=== PATIENT | male | born 1970 | race Two or more races ===

== ENCOUNTER 2025-05-30 22:24 | Inpatient (IN) | payer MEDICAID, OTHER ==
[~2025-05-30] VITALS: Ht 160 cm; Wt 80.3 kg
[2025-05-30] MEDS: SODIUM CHLORIDE 0.9% 1,000 ML IV ONE (22:45)
[2025-05-30 23:14] LABS: Hematocrit 46.6 % (41.0-53.0); Hemoglobin 15.9 g/dL (13.5-17.5); Mean Corpuscular Hemoglobin 30.8 pg (28.0-32.0); Mean Corpuscular Volume 90.2 fL (80.0-100.0); Nucleated Red Blood Cells % 0.0 %
[2025-05-30 23:21] LABS: Alanine Aminotransferase 28 U/L (7-40); Alkaline Phosphatase 69 U/L (46-116); Anion Gap 12 (5-15); BUN/Creatinine Ratio 9.2 (10.0-20.0); Calcium 10.0 mg/dL (8.7-10.4); Carbon Dioxide 27 mmol/L (20-31); Chloride 102 mmol/L (98-107); Lipase 29 U/L (12-53); Potassium 3.7 mmol/L (3.5-5.1); Sodium 141 mmol/L (136-145); Total Protein 7.9 g/dL (5.7-8.2)
[2025-05-30 23:22] LABS: Albumin 5.1 g/dL (3.2-4.8); Bilirubin, Total 0.6 mg/dL (0.2-1.0); Blood Urea Nitrogen 8 mg/dL (9-23); Glucose 162 mg/dL (74-106)
--- NOTE | 2025-05-30 23:33 | DVH ---
Exam: CT CT AB PEL WO CON-NO ORAL OR IV History: abd pain n/v Comparison Study: None TECHNIQUE: Multidetector CT of the abdomen and pelvis was performed from lung bases to pubic symphysi s. Imaging was performed without IV contrast. Axial, coronal, and sagittal multiplanar reformats were obtained from the axial data set by the technologist. RADIATION DOSE: CTDI vol 10.14 mGy. DLP 678.83 mGy.cm Findings: Limited evaluation of the solid organs in the absence of IV contrast. Liver: Unremarkable. Spleen: Unremarkable. Pancreas: Unremarkable. Gallbladder: Unremarkable. Adrenals: Unremarkable Kidneys: Punctate nonobstructing left renal calculus. No hydronephrosis. Pelvic Viscera: Prostatomegaly. Vasculature: Unremarkable. Retroperitoneum: Unremarkable. Bowel: Postsurgical changes of the sigmoid colon. Colonic diverticulosis without CT evidence of dive rticulitis. The appendix is normal. There is dilated and fecalized small bowel with transition to de compressed loops seen within the lower midabdomen. Musculoskeletal: Grade 1 anterolisthesis of L5 on S1 associated with bilateral pars defects. Soft tissues: Unremarkable Lungs: The lung bases are clear. Impression: 1. Findings as above suggestive of small-bowel obstruction in the appropriate clinical setting. 2. Additional findings as detailed.
[2025-05-30] MEDS: ONDANSETRON HCL 4 MG/2 ML VIAL IV ONE (23:50)
--- NOTE | 2025-05-31 00:11 | ED.PDOC ---
GI ASSESSMENT HPI Comments HPI: 55-year-old male came to ER for abdominal pain. Patient has a history of diverticulitis, status post bowel resection 2012, 2015. At the about 7:00 p.m. last night, developed sudden onset left lower quadrant/left-sided abdominal pain, associated with bouts of nausea and vomiting. Denies any diarrhea Initial Vitals BP: 116/74 mm Hg HR: 83 RR: 22 O2: 99% Temp: 98.3 Past Medical History: Diabetes, dyslipidemia Past Surgical History: Bowel resection Social History: Denies ETOH, smoking, and drug use. Medications: Allergies: HPI: Poor Historian. REVIEW OF SYSTEMS: CONSTITUTIONAL: Denies acute: fever, diaphoresis, chills, HEAD: Denies acute: headache, photophobia Eyes: Denies acute: Double vision, vision loss, eye pain, eye discharge. EARS: Denies acute: tinnitus, hearing loss, ear discharge, ear pain, THROAT: Denies acute: sore throat, swelling, difficulty swallowing , pain with swallowing, change in voice. NECK: Denies acute: neck pain, neck swelling, stiff neck. HEART: Denies acute : chest pain, palpitations, LUNGS: Denies acute: SOB, wheezing, cough, hemoptysis ABDOMEN: Denies acute: diarrhea, melena , hematemesis, hematochezia SKIN: Denies acute: rash, redness, lesions, itchiness. EXTREMITIES: Denies acute: calf pain, numbness, tingling, weakness, denies pain in extremity. Denies acute: Low back pain. Neuro: Denies acute: focal neurological deficit, motor or sensory focal neurological deficit, tremors, seizure like activity, confusion, dizziness, change in mental status, loss of bowel or bladder function, cauda equina like symptoms. : Denies acute: dysuria, hematuria, flank pain, increase in urinary frequency. PSYCH: Denies acute: hallucination, suicidal ideation, homicidal ideation. PHYSICAL EXAM: General: ----moderate to severe----acute distress, awake and alert. Head: normocephalic, atraumatic. Neck: supple, trachea is midline, no swelling. Throat: Normal phonation. Eyes:, no erythema, no purulent discharge, no proptosis, no icterus. Heart: regular rate, regular rhythm, no significant murmur appreciated. Lungs: no apparent respiratory distress, Able to speak in full sentences. No wheezing, no rhonchi, no crackles. No stridors Clear to auscultation bilaterally. Abdomen: Left-sided abdominal tender to palpation, non distended, soft, no guarding, no rebound, + bowel sounds. Neuro: Awake, Alert, oriented to name, self, situation, follows commands GCS=15. Speech is normal. Skin: no petechia, no purpura, no cyanosis, non-pale, not jaundice. Lower extremities: --no - Pitting edema no deformity, no focal swelling, no calf TTP. Makes eye contact. moves all four extremities. Face: no apparent facial droop. Ambulating in the ED independently. ED COURSE: DISCLAIMER: This medical document was created using an electronic medical record system with voice recognition software and computerized dictation system. Although this document has been carefully reviewed, there might still be some phonetic and typographical errors. Occasional wrong-word or "sound-alike" substitutions may have occurred due to the inherent limitations of voice recognition software. These areas are purely typographical due to imperfections of the software [employer] and do not reflect any compromise in the patient's medical care. Please read the chart carefully and recognize, using context, where these substitutions have occurred. Chief Complaint: Abdominal Pain Time Seen by MD: 00:11 Reviewed Notes: Allergies Allergies: Coded Allergies: NO KNOWN ALLERGIES (Unverified , 05/30/25) Home Meds Reported Medications Atorvastatin Calcium (ATORVASTATIN CALCIUM) 10 Mg Tab, 1 TAB PO DAILY 06/01/25 Metformin Hydrochloride (Metformin Hcl) 500 Mg Tab, 1 TAB PO BID 06/01/25 Information Source: Patient Mode of Arrival: Ambulatory Past Medical History PAST MEDICAL HISTORY: DM, High Lipids Past Medical History (Other): Diverticulitis Surgical History (Other): Bowel resection 2012, 2016 Family History Family History: Reviewed,noncontributory to illness Social History Smoker: Non-Smoker Alcohol: Denies ETOH Use Drugs: Denies Drug Use Lives In: Home Was a procedure done? Was a procedure done?: No GI differential Dx Differential Diagnosis: Other (DDX include but not limited to diverticulitis, colitis, gastroenteritis, acute abdomen, SBO, enteritis, constipation, volvulus, appendicitis, Gallbladder disease, choledocolithiasis, ascending cholangitis, pancreatitis, intraAbdominal mass/neoplasm, hepatitis, UTI, pylonephritis, kidney stone, aneurysm, dissection, Inflammatory bowel disease, gastroparesis, ischemic bowel.) X-Ray, Labs, Meds, VS Vital Signs Date Time Temp Pulse Resp B/P (MAP) Pulse Ox O2 Delivery O2 Flow Rate FiO2 05/31/25 04:48 86 19 131/77 (95) 98 05/31/25 04:00 83 05/31/25 02:00 87 22 145/85 (105) 97 05/31/25 01:42 135/89 05/31/25 00:25 97.2 72 30 150/92 (111) 100 97.2 05/31/25 00:15 97.9 75 20 130/68 (88) 99 97.9 05/31/25 00:15 75 20 99 Room Air 05/30/25 22:24 98.3 83 22 116/74 99 98.3 Lab Test 05/31/25 03:20 05/31/25 00:45 05/30/25 23:43 05/30/25 22:52 Range/Units White Blood Count 14.2 H 12.0 H 4.4-10.8 10^3/uL Red Blood Count 4.74 5.17 4.5-5.90 10^6/uL Hemoglobin 14.7 15.9 13.5-17.5 g/dL Hematocrit 43.1 46.6 41.0-53.0 % Mean Corpuscular Volume 91.0 90.2 80.0-100.0 fL Mean Corpuscular Hemoglobin 31.1 30.8 28.0-32.0 pg Mean Corpuscular Hemoglobin Concent 34.2 34.1 32.0-36.0 g/dL Red Cell Distribution Width 13.8 13.6 11.8-14.3 % Platelet Count 166 193 140-450 10^3/uL Mean Platelet Volume 9.5 9.1 6.9-10.8 fL Neutrophils (%) (Auto) 87.5 H 62.0 37.0-80.0 % Lymphocytes (%) (Auto) 7.6 L 31.0 10.0-50.0 % Monocytes (%) (Auto) 4.7 5.4 0.0-12.0 % Eosinophils (%) (Auto) 0.0 1.3 0.0-7.0 % Basophils (%) (Auto) 0.2 0.3 0.0-2.0 % Neutrophils # (Auto) 12.4 H 7.5 1.6-8.6 10 ^3/uL Lymphocytes # (Auto) 1.1 3.7 0.4-5.4 10 ^3/uL Monocytes # (Auto) 0.7 0.6 0-1.3 10 ^3/uL Eosinophils # (Auto) 0 0.2 0-0.8 10 ^3/uL Basophils # (Auto) 0 0 0-0.2 10 ^3/uL Nucleated Red Blood Cells 0.1 0.0 % Sodium Level 144 141 136-145 mmol/L Potassium Level 4.1 3.7 3.5-5.1 mmol/L Chloride Level 108 H 102 98-107 mmol/L Carbon Dioxide Level 24 27 20-31 mmol/L Anion Gap 12 12 5-15 Blood Urea Nitrogen 10 8 L 9-23 mg/dL Creatinine 0.70 0.87 0.700-1.30 mg/dL Glomerular Filtration Rate Calc 110 103 >90 mL/min BUN/Creatinine Ratio 14.3 9.2 L 10.0-20.0 Serum Glucose 154 H 162 H 74-106 mg/dL Lactic Acid Level 3.1 *H 3.9 *H 3.7 *H 0.4-2.0 mmol/L Calcium Level 8.1 L 10.0 8.7-10.4 mg/dL Total Bilirubin 0.6 0.6 0.2-1.0 mg/dL Aspartate Amino Transferase (AST) 29 23 13-40 U/L Alanine Aminotransferase (ALT) 24 28 7-40 U/L Alkaline Phosphatase 53 69 46-116 U/L Total Protein 6.6 7.9 5.7-8.2 g/dL Albumin 4.2 5.1 H 3.2-4.8 g/dL Troponin I High Sensitivity < 3 L < 3 L < 3 L </=54 ng/L Lipase 29 12-53 U/L [facility] [id number] [place] [id number] Ph: [phone] DIAGNOSTIC IMAGING Diagnostic Imaging Report : [id number] Signed PATIENT: MARTA SMITH ACCT: [id number] UNIT: [id number] : 1970 LOC: ER ROOM / BED: / AGE / SEX: 55 / M ADM STATUS: REG ER SERVICE 34 ORDERING PHYSICIAN: ALKA FRIEDMAN DO PROCEDURE(s): ABPL - CT AB PEL WO CON-NO ORAL OR IV REASON: abd pain n/v ORDER NUMBER(s): [id number], ACCESSION NUMBER(s): [id number] Exam: CT CT AB PEL WO CON-NO ORAL OR IV History: abd pain n/v Comparison Study: None TECHNIQUE: Multidetector CT of the abdomen and pelvis was performed from lung bases to pubic symphysis. Imaging was performed without IV contrast. Axial, coronal, and sagittal multiplanar reformats were obtained from the axial data set by the technologist. RADIATION DOSE: CTDI vol 10.14 mGy. DLP 678.83 mGy.cm Findings: Limited evaluation of the solid organs in the absence of IV contrast. Liver: Unremarkable. Spleen: Unremarkable. Pancreas: Unremarkable. Gallbladder: Unremarkable. Adrenals: Unremarkable Kidneys: Punctate nonobstructing left renal calculus. No hydronephrosis. Pelvic Viscera: Prostatomegaly. Vasculature: Unremarkable. Retroperitoneum: Unremarkable. Bowel: Postsurgical changes of the sigmoid colon. Colonic diverticulosis without CT evidence of diverticulitis. The appendix is normal. There is dilated and fecalized small bowel with transition to decompressed loops seen within the lower midabdomen. Musculoskeletal: Grade 1 anterolisthesis of L5 on S1 associated with bilateral pars defects. Soft tissues: Unremarkable Lungs: The lung bases are clear. Impression: 1. Findings as above suggestive of small-bowel obstruction in the appropriate clinical setting. 2. Additional findings as detailed. ATED BY: GERRY DIMAS MD DICTATED DATE/TIME: 05/30/252329 SIGNED BY: GERRY DIMAS MD SIGNED DATE/TIME: 05/30/252329 CC: Time of 1ST Reevaluation: 00:06 Reevaluation 1ST: Unchanged Patient Education/Counseling: Diagnosis, Treatment Family Education/Counseling: No Family Present Comments MDM: patient presented with the above HPI.---abdominal pain---workup was initiated. patient was found with the above mentioned diagnosis. the following medications were ordered: please refer to order lists of meds and tests obtained by myself Dr. Friedman. Patient ED course and VS have been stabilized. Patient has been reassessed in the ED and remained in a stable condition. Pertinent incidental findings were discussed with the patient and/or family. Patient/family voices understanding and is agreeable with plan. Patient has been observed in the ED adequate length of time to insure improvement/stability. Escalation of care considered: Consideration of escalation to observation or admission Patient was given fluids, Zosyn,, fentanyl, OG tube was placed, Zofran, general surgery was consulted. Patient was ADMITTED to the medicine team for further evaluation and treatment of their presentation. All the reports of any imaging studies that were ordered by myself were reviewed by myself. SEPSIS Sepsis Screen Date sepsis recognized/suspect: May 30, 2025 Time Sepsis recognized/suspect: 2223 Recent Procedure: No On Antibiotic Therapy: No Respiratory Rate >20: No Heart Rate >90: No Temp<36 C (96.8 F) or >38.3 C: No SBP <90 or MAP <65 mmHG: No New Acute Mental Status Change: No Is the patient on CPAP, BIPAP,: No Physician Orders Department [employer] (05/30/25 ) Electrocardigram (05/30/25 22:35) Ct Ab Pel Wo Con-No Oral Or Iv (05/30/25 22:35) * Surgical Consult (05/31/25 ) Chest Xray 1 View (05/31/25 00:24) Ngt/Ogt (05/31/25 ) Code Status (05/31/25 01:24) Oxygen Per Hour (05/31/25 01:24) Vital Signs Date Time Temp Pulse Resp B/P (MAP) Pulse Ox O2 Delivery O2 Flow Rate FiO2 05/31/25 04:48 86 19 131/77 (95) 98 05/31/25 04:00 83 05/31/25 02:00 87 22 145/85 (105) 97 05/31/25 01:42 135/89 05/31/25 00:25 97.2 72 30 150/92 (111) 100 97.2 05/31/25 00:15 97.9 75 20 130/68 (88) 99 97.9 05/31/25 00:15 75 20 99 Room Air 05/30/25 22:24 98.3 83 22 116/74 99 98.3 Laboratory Tests Test 05/30/25 22:52 05/31/25 00:45 05/31/25 03:20 Lactic Acid Level 3.7 mmol/L (0.4-2.0) *H 3.9 mmol/L (0.4-2.0) *H 3.1 mmol/L (0.4-2.0) *H White Blood Count 12.0 10^3/uL (4.4-10.8) H 14.2 10^3/uL (4.4-10.8) H Departure 1 Departure Time of Disposition: 00:05 Impression: Primary Impression: Bowel obstruction Disposition: ADMITTED INPATIENT Admit to: [facility] Condition: Guarded Discharged With: Self Critical Care Note Critical Care Time?: Yes (35 min-critical care time only) I personally scribed for ALKA FRIEDMAN DO ([email or web address]) on 05/31/25 at 00:11. Electronically submitted by Damien Cueto ([employer]). I personally scribed for ALKA FRIEDMAN DO ([email or web address]) on 05/31/25 at 00:16. Electronically submitted by Damien Cueto ([employer]). ALKA FRIEDMAN DO May 31, 2025 00:11
[2025-05-31 00:13] LABS: Lactic Acid w/Reflex 3.7 mmol/L (0.4-2.0)
[2025-05-31] MEDS ORDERED: DEXTROSE (50%) 50ML SYRG IV PRN (01:30)
[2025-05-31] MEDS: SODIUM CHLORIDE 0.9% 1,000 ML IV ONE ×2 (01:37→04:33)
[2025-05-31] MEDS: fentaNYL CITRATE 100 MCG/2 ML VL IV ONE (01:42)
[2025-05-31] MEDS: PIPERACILLIN-TAZOB 3.375GM 100 ML IV ONE (01:50)
[2025-05-31] MEDS: SODIUM CHLORIDE 0.9% 1,000 ML IV SCH ×2 (03:00→15:13)
--- NOTE | 2025-05-31 03:14 | DVH ---
CHEST RADIOGRAPH Indication: NGT PLACEMENT Technique: Single frontal view of the chest was obtained Comparison: None FINDINGS: Lines and Tubes: Enteric tube likely in appropriate position. Lungs: No focal consolidation. Mild pulmonary vascular congestion and interstitial edema. Pleura: No effusion. No pneumothorax. Cardiomediastinal contours: Mild cardiomegaly. Bones: No acute osseous abnormality. IMPRESSION: 1. Enteric tube likely in appropriate position. 2. No focal consolidation. Mild pulmonary vascular congestion and interstitial edema. Mild cardiomega ly.
[2025-05-31 03:50] LABS: Hematocrit 43.1 % (41.0-53.0); Hemoglobin 14.7 g/dL (13.5-17.5); Mean Corpuscular Hemoglobin 31.1 pg (28.0-32.0); Mean Corpuscular Volume 91.0 fL (80.0-100.0); Nucleated Red Blood Cells % 0.1 %
[2025-05-31 03:58] LABS: Alanine Aminotransferase 24 U/L (7-40); Albumin 4.2 g/dL (3.2-4.8); Alkaline Phosphatase 53 U/L (46-116); Anion Gap 12 (5-15); BUN/Creatinine Ratio 14.3 (10.0-20.0); Bilirubin, Total 0.6 mg/dL (0.2-1.0); Blood Urea Nitrogen 10 mg/dL (9-23); Carbon Dioxide 24 mmol/L (20-31); Potassium 4.1 mmol/L (3.5-5.1); Sodium 144 mmol/L (136-145); Total Protein 6.6 g/dL (5.7-8.2)
[2025-05-31 04:11] LABS: Lactic Acid w/Reflex 3.1 mmol/L (0.4-2.0)
[2025-05-31 04:12] LABS: Calcium 8.1 mg/dL (8.7-10.4); Chloride 108 mmol/L (98-107); Glucose 154 mg/dL (74-106)
[2025-05-31] MEDS ORDERED: NITROGLYCERIN 0.4 MG SL TAB SL PRN (05:15)
[2025-05-31] MEDS ORDERED: MORPHINE SULFATE INJ 2 MG/ml SYRG IV PRN (05:15)
--- NOTE | 2025-05-31 05:24 | DVHHP2 ---
History of Present Illness Reason for Visit: Small-bowel obstruction History of Present Illness The patient is a 55-year-old male with past medical history of diverticulitis status post bowel resection, diabetes mellitus and hyperlipidemia who presented to [facility] ED with complaint of abdominal pain. Patient reports he has been experiencing sudden onset of left lower quadrant abdominal pain, associated with bouts of nausea, vomiting, getting worse that prompted this visit. Patient was seen and evaluated in the ED, laboratory data shows WBC 12.0, platelets 193, sodium 141, potassium 3.7, BUN 8, creatinine 0.87, GFR 103, glucose 162, albumin 5.1, lipase 29, blood pressure 150/92, heart rate 72, temperature 97.2 F, O2 saturation 99% on room air. Abdomen/pelvis CT revealing small bowel obstruction. Please see medication orders section in the computer. On my assessment, patient denied chest pain, no headache, no dizziness, no shortness of breath, no abdominal pain, nausea or vomiting at this moment, no fever, no chills. Patient was admitted for further evaluation and medical management. Past Medical History Diabetes mellitus, Hyperlipidemia Past Surgical History Bowel resection Family History Reviewed, noncontributory to the management of this case. Past Social History The patient lives at home, denies smoking, alcohol or illicit drugs abuse. Review of Systems Constitutional: No: Fever, Chills, Sweats, Weakness, Malaise, Other Eyes: No: Pain, Vision change, Conjunctivae inflammation, Eyelid inflammation, Other, Redness ENT: No: Ear pain, Ear discharge, Nose pain, Nose discharge, Nose congestion, Mouth pain, Mouth swelling, Throat pain, Throat swelling, Other Respiratory: No: Cough, Dry, Shortness of breath, SOB with excertion, Wheezing, Hemoptysis, Pleuritic Pain, Sputum, Wheezing, Other Cardiovascular: No: Chest Pain, Palpitations, Orthopnea, Paroxysmal Noc. Dyspnea, Edema, Lt Headedness, Other Gastrointestinal: Nausea, Vomiting, Abdominal Pain; No: Diarrhea, Constipation, Melena, Hematochezia, Other Genitourinary: No Dysuria, No Frequency, No Incontinence, No Hematuria, No Retention, No Other Musculoskeletal: No: other, neck pain, shoulder pain, arm pain, back pain, hand pain, leg pain, foot pain Skin: No: Rash, Lesions, Jaundice, Bruising, Other Neurological: No: Weakness, Numbness, Incoordination, Change in speech, Confusion, Seizures, Other Allergies: Coded Allergies: NO KNOWN ALLERGIES (Unverified , 05/30/25) Medications Current Medications Medications Dose Ordered Sig/Jony Route Start Time Stop Time Status Last Admin Dose Admin Ceftriaxone Sodium 50 ml @ 100 mls/hr DAILY@09 IV 05/31/25 09:00 Famotidine 20 mg DAILY IV 05/31/25 10:00 Diagnostic Test (Pha) 1 strip Q6HR 05/31/25 06:00 Insulin Human Regular Q6HR SC 05/31/25 06:00 Dextrose 50 ml UD PRN IV 05/31/25 01:30 Sodium Chloride 1,000 ml @ 60 mls/hr [id number] IV 05/31/25 01:30 05/31/25 03:00 60 MLS/HR Ondansetron HCl 4 mg Q4HP PRN IV 05/31/25 01:30 Morphine Sulfate 2 mg Q4HPRN PRN IV 05/31/25 01:30 Exam Vital Signs Vital Signs Date Time Temp Pulse Resp B/P (MAP) Pulse Ox O2 Delivery O2 Flow Rate FiO2 05/31/25 04:48 86 19 131/77 (95) 98 05/31/25 00:25 97.2 97.2 05/31/25 00:15 Room Air General Appearance: Alert, Oriented X3, Cooperative, No acute distress HEENT: Atraumatic, PERRLA, EOMI, Mucous membr. moist/pink Respiratory: Clear to auscultation, Normal air movement Cardiovascular: Regular rate, Normal S1, Normal S2, No murmurs Abdominal: Normal bowel sounds, Soft, No hepatospenomegaly, No masses, Other (Reports tenderness) Extremities: No clubbing, No cyanosis, No edema, Normal pulses, No ten derness/swelling Skin: No rashes, No breakdown, No significant lesion Neuro: Normal gait, Normal speech, Strength at 5/5 X4 ext, Normal tone, Sensation intact, Cranial nerves 3-12 NL, Reflexes 2+ Psych/Mental Status: Mental status NL, Mood NL Labs/Xrays Labs Test 05/31/25 03:20 05/31/25 00:45 05/30/25 22:52 Range/Units White Blood Count 14.2 H 4.4-10.8 10^3/uL Red Blood Count 4.74 4.5-5.90 10^6/uL Hemoglobin 14.7 13.5-17.5 g/dL Hematocrit 43.1 41.0-53.0 % Mean Corpuscular Volume 91.0 80.0-100.0 fL Mean Corpuscular Hemoglobin 31.1 28.0-32.0 pg Mean Corpuscular Hemoglobin Concent 34.2 32.0-36.0 g/dL Red Cell Distribution Width 13.8 11.8-14.3 % Platelet Count 166 140-450 10^3/uL Mean Platelet Volume 9.5 6.9-10.8 fL Neutrophils (%) (Auto) 87.5 H 37.0-80.0 % Lymphocytes (%) (Auto) 7.6 L 10.0-50.0 % Monocytes (%) (Auto) 4.7 0.0-12.0 % Eosinophils (%) (Auto) 0.0 0.0-7.0 % Basophils (%) (Auto) 0.2 0.0-2.0 % Neutrophils # (Auto) 12.4 H 1.6-8.6 10 ^3/uL Lymphocytes # (Auto) 1.1 0.4-5.4 10 ^3/uL Monocytes # (Auto) 0.7 0-1.3 10 ^3/uL Eosinophils # (Auto) 0 0-0.8 10 ^3/uL Basophils # (Auto) 0 0-0.2 10 ^3/uL Nucleated Red Blood Cells 0.1 % Sodium Level 144 136-145 mmol/L Potassium Level 4.1 3.5-5.1 mmol/L Chloride Level 108 H 98-107 mmol/L Carbon Dioxide Level 24 20-31 mmol/L Anion Gap 12 5-15 Blood Urea Nitrogen 10 9-23 mg/dL Creatinine 0.70 0.700-1.30 mg/dL Glomerular Filtration Rate Calc 110 >90 mL/min BUN/Creatinine Ratio 14.3 10.0-20.0 Serum Glucose 154 H 74-106 mg/dL Lactic Acid Level 3.1 *H 0.4-2.0 mmol/L Calcium Level 8.1 L 8.7-10.4 mg/dL Total Bilirubin 0.6 0.2-1.0 mg/dL Aspartate Amino Transferase (AST) 29 13-40 U/L Alanine Aminotransferase (ALT) 24 7-40 U/L Alkaline Phosphatase 53 46-116 U/L Total Protein 6.6 5.7-8.2 g/dL Albumin 4.2 3.2-4.8 g/dL Troponin I High Sensitivity < 3 L </=54 ng/L Lipase 29 12-53 U/L PATIENT: MARTA SMITH ACCT: [id number] UNIT: [id number] : 1970 LOC: ER ROOM / BED: / AGE / SEX: 55 / M ADM STATUS: REG ER SERVICE ORDERING PHYSICIAN: ALKA FRIEDMAN DO PROCEDURE(s): ABPL - CT AB PEL WO CON-NO ORAL OR IV REASON: abd pain n/v ORDER NUMBER(s): [id number], ACCESSION NUMBER(s): [id number] Exam: CT CT AB PEL WO CON-NO ORAL OR IV History: abd pain n/v Comparison Study: None TECHNIQUE: Multidetector CT of the abdomen and pelvis was performed from lung bases to pubic symphysis. Imaging was performed without IV contrast. Axial, coronal, and sagittal multiplanar reformats were obtained from the axial data set by the technologist. RADIATION DOSE: CTDI vol 10.14 mGy. DLP 678.83 mGy.cm Findings: Limited evaluation of the solid organs in the absence of IV contrast. Liver: Unremarkable. Spleen: Unremarkable. Pancreas: Unremarkable. Gallbladder: Unremarkable. Adrenals: Unremarkable Kidneys: Punctate nonobstructing left renal calculus. No hydronephrosis. Pelvic Viscera: Prostatomegaly. Vasculature: Unremarkable. Retroperitoneum: Unremarkable. Bowel: Postsurgical changes of the sigmoid colon. Colonic diverticulosis without CT evidence of diverticulitis. The appendix is normal. There is dilated and fecalized small bowel with transition to decompressed loops seen within the lower midabdomen. Musculoskeletal: Grade 1 anterolisthesis of L5 on S1 associated with bilateral pars defects. Soft tissues: Unremarkable Lungs: The lung bases are clear. Impression: 1. Findings as above suggestive of small-bowel obstruction in the appropriate clinical setting. 2. Additional findings as detailed. ORDERING PHYSICIAN: ALKA FRIEDMAN DO PROCEDURE(s): CXR1 - CHEST XRAY 1 VIEW REASON: NGT PLACEMENT ORDER NUMBER(s): [id number], ACCESSION NUMBER(s): [id number] CHEST RADIOGRAPH Indication: NGT PLACEMENT Technique: Single frontal view of the chest was obtained Comparison: None FINDINGS: Lines and Tubes: Enteric tube likely in appropriate position. Lungs: No focal consolidation. Mild pulmonary vascular congestion and in terstitial edema. Pleura: No effusion. No pneumothorax. Cardiomediastinal contours: Mild cardiomegaly. Bones: No acute osseous abnormality. IMPRESSION: 1. Enteric tube likely in appropriate position. 2. No focal consolidation. Mild pulmonary vascular congestion and interstitial edema. Mild cardiomegaly. SEPSIS Sepsis Screen Date sepsis recognized/suspect: May 31, 2025 Time Sepsis recognized/suspect: 14 Recent Procedure: No On Antibiotic Therapy: No Respiratory Rate >20: No Heart Rate >90: No Temp<36 C (96.8 F) or >38.3 C: No SBP <90 or MAP <65 mmHG: No New Acute Mental Status Change: No Is the patient on CPAP, BIPAP,: No Physician Orders Director Sales Training (05/30/25 ) Urinalysis (05/30/25 22:35) Electrocardigram (05/30/25 22:35) Ct Ab Pel Wo Con-No Oral Or Iv (05/30/25 22:35) Ng/Orogastric Tube To Lis (05/31/25 00:04) * Surgical Consult (05/31/25 ) Chest Xray 1 View (05/31/25 00:24) Ceftriaxone 1gm/50ml D5w (Rocephin) (05/31/25 09:00) Ngt/Ogt (05/31/25 ) Famotidine Injection (Pepcid Injection) (05/31/25 10:00) Glucose Blood (Accu-Chek Comfort Curve T (05/31/25 06:00) Insulin R (Human) (Insulin R) (05/31/25 06:00) Dextrose 50% Syringe (05/31/25 01:30) Allergies (05/31/25 01:24) Code Status (05/31/25 01:24) Sodium Chloride 0.9% (05/31/25 01:30) Oxygen Per Hour (05/31/25 01:24) Ondansetron Hcl (Zofran) (05/31/25 01:30) Complete Blood Count (06/01/25 04:00) Comprehensive Metabolic Panel (06/01/25 04:00) Npo (Nothing By Mouth) Diet (05/31/25 Breakfast) Condition: Serious (05/31/25 01:24) Bedrest With Bathroom Privileg (05/31/25 01:24) Morphine Sulfate Injection (05/31/25 01:30) Sequential Compression Device (05/31/25 ) Sodium Chloride 0.9% (05/31/25 04:15) Vital Signs Date Time Temp Pulse Resp B/P (MAP) Pulse Ox O2 Delivery O2 Flow Rate FiO2 05/31/25 04:48 86 19 131/77 (95) 98 05/31/25 04:00 83 05/31/25 02:00 87 22 145/85 (105) 97 05/31/25 01:42 135/89 05/31/25 00:25 97.2 72 30 150/92 (111) 100 97.2 05/31/25 00:15 97.9 75 20 130/68 (88) 99 97.9 05/31/25 00:15 75 20 99 Room Air 05/30/25 22:24 98.3 83 22 116/74 99 98.3 Laboratory Tests Test 05/30/25 22:52 05/31/25 00:45 05/31/25 03:20 Lactic Acid Level 3.7 mmol/L (0.4-2.0) *H 3.9 mmol/L (0.4-2.0) *H 3.1 mmol/L (0.4-2.0) *H White Blood Count 12.0 10^3/uL (4.4-10.8) H 14.2 10^3/uL (4.4-10.8) H Medications Medications Dose Ordered Sig/Jony Route Start Time Stop Time Status Last Admin Dose Admin Fentanyl Citrate 100 mcg ONCE ONCE IV 05/31/25 00:15 05/31/25 00:16 DC 05/31/25 01:42 100 MCG Ondansetron HCl 8 mg ONCE ONCE IV 05/30/25 22:45 05/30/25 22:46 DC 05/30/25 23:50 8 MG Piperacillin Sod/ Tazobactam Sod 100 ml @ 100 mls/hr ONCE ONCE IV 05/31/25 00:15 05/31/25 01:14 DC 05/31/25 01:50 100 MLS/HR Sodium Chloride 1,000 ml @ 60 mls/hr [id number] IV 05/31/25 01:30 05/31/25 03:00 60 MLS/HR Sodium Chloride 1,000 ml @ 1,000 mls/hr Q1H ONCE IV 05/30/25 22:45 05/30/25 23:44 DC 05/30/25 22:45 1,000 MLS/HR Sodium Chloride 1,000 ml @ 1,000 mls/hr Q1H ONCE IV 05/31/25 00:15 05/31/25 01:14 DC 05/31/25 01:37 1,000 MLS/HR Sodium Chloride 1,000 ml @ 1,000 mls/hr Q1H ONCE IV 05/31/25 04:15 05/31/25 05:14 05/31/25 04:33 1,000 MLS/HR Assessment/Plan Assessment/Plan Small-bowel obstruction Leukocytosis, unspecified Intractable nausea and vomiting Plan 1. Admit to telemetry unit 2. Breathing treatment 3. Pain control management 4. IV antibiotic management 5. Management of fluids and electrolytes 6. Consultation for surgery 7. Diagnostic test abdomen/pelvis CT 8. DVT prophylaxis-on SCDs 9. Repeat labs CBC, CMP in a.m. 10. Home medication reviewed and reconciled 11. Continue with current medical management 12. Treatment plan discussed with patient and RN. Patient verbalized understanding. Plan discussed with: Patient, Other (RN) My Orders Orders - JON FIGUEROA DNP Procedure Category Date Status Time Ceftriaxone 1gm/50ml PHA 05/31/25 In Process D5w (Rocephin) 09:00 Ngt/Ogt ED NURSING 05/31/25 Transmitted Famotidine Injection PHA 05/31/25 In Process (Pepcid Injection) 10:00 Glucose Blood PHA 05/31/25 In Process (Accu-Chek Comfort 06:00 Insulin R (Human) PHA 05/31/25 In Process (Insulin R) 06:00 Dextrose 50% Syringe PHA 05/31/25 In Process 01:30 Allergies ALYSON 05/31/25 In Process 01:24 Code Status CODE 05/31/25 Transmitted 01:24 Sodium Chloride 0.9% PHA 05/31/25 In Process 01:30 Oxygen Per Hour RT 05/31/25 Transmitted 01:24 Ondansetron Hcl PHA 05/31/25 In Process (Zofran) 01:30 Complete Blood Count LAB 06/01/25 Verified 04:00 Comprehensive LAB 06/01/25 Verified Metabolic Panel 04:00 Npo (Nothing By DIET 05/31/25 Transmitted Mouth) Diet Breakfast Condition: Serious ALYSON 05/31/25 In Process 01:24 Bedrest With Bathroom ALYSON 05/31/25 In Process Privileg 01:24 Morphine Sulfate PHA 05/31/25 In Process Injection 01:30 Sequential ALYSON 05/31/25 In Process Compression Device Problem List: (1) Small bowel obstruction (2) Leukocytosis, unspecified (3) Intractable nausea and vomiting Date of Service: May 31, 2025 Billing Provider: JON FIGUEROA DNP Common Visit Codes: [id number] INP/OBS CARE (HIGH) JON FIGUEROA DNP May 31, 2025 05:24
[2025-05-31] MEDS: ACCU-CHEK COMFORT CURVE STRIP VI SCH (06:00)
[2025-05-31] MEDS: InsuLIN REG 1unit/0.01ml Soln (100units/ml) SC SCH (06:25)
[2025-05-31 08:46] VITALS: PULSE 90; RESP 13; O2SAT 98
--- NOTE | 2025-05-31 09:29 | DVHINCON2 ---
Date of service: May 31, 2025 Allergies: Coded Allergies: NO KNOWN ALLERGIES (Unverified , 05/30/25) Current Medications Current Medications Medications (Trade) Dose Ordered Sig/Jony Route PRN Reason Start Time Stop Time Status Last Admin Ceftriaxone Sodium 50 ml @ 100 mls/hr DAILY@09 IV 05/31/25 09:00 05/31/25 09:01 Famotidine (Pepcid Injection) 20 mg DAILY IV 05/31/25 10:00 Diagnostic Test (Pha) (Accu-Chek Comfort Curve T) 1 strip Q6HR 05/31/25 06:00 05/31/25 06:00 Insulin Human Regular (InsuLIN R) Q6HR SC 05/31/25 06:00 05/31/25 06:25 Dextrose 50 ml UD PRN IV Blood Sugar LESS THAN 60 05/31/25 01:30 Sodium Chloride 1,000 ml @ 60 mls/hr [id number] IV 05/31/25 01:30 05/31/25 03:00 Ondansetron HCl (Zofran) 4 mg Q4HP PRN IV NAUSEA / VOMITING 05/31/25 01:30 Morphine Sulfate 2 mg Q4HPRN PRN IV SEVERE PAIN (7-10 PAIN SCALE) 05/31/25 01:30 Nitroglycerin (Ntrostat Sublingual) 0.4 mg Q5MINP PRN SL FOR CHEST PAIN 05/31/25 05:15 Morphine Sulfate 2 mg Q30M PRN IV FOR CHEST PAIN 05/31/25 05:15 Vital Signs Vital Signs Date Time Temp Pulse Resp B/P (MAP) Pulse Ox O2 Delivery O2 Flow Rate FiO2 05/31/25 08:46 97.9 90 13 129/77 (94) 98 97.9 05/31/25 08:46 Nasal Cannula* 2 28 Labs/Diagnostic Data Labs Test 05/31/25 05:24 05/31/25 03:20 05/31/25 00:45 05/30/25 22:52 Range/Units Lactic Acid Level 3.2 *H 0.4-2.0 mmol/L White Blood Count 14.2 H 4.4-10.8 10^3/uL Red Blood Count 4.74 4.5-5.90 10^6/uL Hemoglobin 14.7 13.5-17.5 g/dL Hematocrit 43.1 41.0-53.0 % Mean Corpuscular Volume 91.0 80.0-100.0 fL Mean Corpuscular Hemoglobin 31.1 28.0-32.0 pg Mean Corpuscular Hemoglobin Concent 34.2 32.0-36.0 g/dL Red Cell Distribution Width 13.8 11.8-14.3 % Platelet Count 166 140-450 10^3/uL Mean Platelet Volume 9.5 6.9-10.8 fL Neutrophils (%) (Auto) 87.5 H 37.0-80.0 % Lymphocytes (%) (Auto) 7.6 L 10.0-50.0 % Monocytes (%) (Auto) 4.7 0.0-12.0 % Eosinophils (%) (Auto) 0.0 0.0-7.0 % Basophils (%) (Auto) 0.2 0.0-2.0 % Neutrophils # (Auto) 12.4 H 1.6-8.6 10 ^3/uL Lymphocytes # (Auto) 1.1 0.4-5.4 10 ^3/uL Monocytes # (Auto) 0.7 0-1.3 10 ^3/uL Eosinophils # (Auto) 0 0-0.8 10 ^3/uL Basophils # (Auto) 0 0-0.2 10 ^3/uL Nucleated Red Blood Cells 0.1 % Sodium Level 144 136-145 mmol/L Potassium Level 4.1 3.5-5.1 mmol/L Chloride Level 108 H 98-107 mmol/L Carbon Dioxide Level 24 20-31 mmol/L Anion Gap 12 5-15 Blood Urea Nitrogen 10 9-23 mg/dL Creatinine 0.70 0.700-1.30 mg/dL Glomerular Filtration Rate Calc 110 >90 mL/min BUN/Creatinine Ratio 14.3 10.0-20.0 Serum Glucose 154 H 74-106 mg/dL Calcium Level 8.1 L 8.7-10.4 mg/dL Total Bilirubin 0.6 0.2-1.0 mg/dL Aspartate Amino Transferase (AST) 29 13-40 U/L Alanine Aminotransferase (ALT) 24 7-40 U/L Alkaline Phosphatase 53 46-116 U/L Total Protein 6.6 5.7-8.2 g/dL Albumin 4.2 3.2-4.8 g/dL Troponin I High Sensitivity < 3 L </=54 ng/L Lipase 29 12-53 U/L Assessment PATIENT'S NAME APPEARED ON MY PATIENT LIST HOWEVER I WAS NEVER CALLED OR PAGED WITH A CONSULT, IS [employer] TODAY AND I HAVE REQUESTED PBX TO [address] FIORE WITH THE CONSULT WILLIAM Plan discussed with: Other SHU GREGG MD May 31, 2025 09:29
--- NOTE | 2025-05-31 09:46 | DVHPN2 ---
Progress Note Date Seen: May 31, 2025 Medical Necessity Reason Pt with a Central, PICC or Fol: No Objective vital signs Vital Sign Date Time Temp Pulse Resp B/P (MAP) Pulse Ox O2 Delivery O2 Flow Rate FiO2 05/31/25 08:46 97.9 90 13 129/77 (94) 98 97.9 05/31/25 08:46 Nasal Cannula* 2 28 Total Intake and Output 05/30/25 05/30/25 05/31/25 15:00 23:00 07:00 Intake Total 2360 ml Balance 2360 ml medications Current Medications Medications Dose Ordered Sig/Jony Route Start Time Stop Time Status Last Admin Dose Admin Ceftriaxone Sodium 50 ml @ 100 mls/hr DAILY@09 IV 05/31/25 09:00 05/31/25 09:01 Famotidine 20 mg DAILY IV 05/31/25 10:00 Diagnostic Test (Pha) 1 strip Q6HR 05/31/25 06:00 05/31/25 06:00 Insulin Human Regular Q6HR SC 05/31/25 06:00 05/31/25 06:25 Dextrose 50 ml UD PRN IV 05/31/25 01:30 Sodium Chloride 1,000 ml @ 60 mls/hr [id number] IV 05/31/25 01:30 05/31/25 03:00 Ondansetron HCl 4 mg Q4HP PRN IV 05/31/25 01:30 Morphine Sulfate 2 mg Q4HPRN PRN IV 05/31/25 01:30 Nitroglycerin 0.4 mg Q5MINP PRN SL 05/31/25 05:15 Morphine Sulfate 2 mg Q30M PRN IV 05/31/25 05:15 laboratory and microbiology Laboratory Tests 05/31/25 03:20 Test 05/31/25 03:20 Range/Units Serum Glucose 154 H 74-106 mg/dL Problem List/Assessment/Plan Problem List/Assessment/Plan 05/31/25 DUE TO PATIENT'S LACTIC ACIDOSIS I WENT TO SEE HIM ALTHOUGH DR. FIORE WILL ULTIMATELY GET THIS CONSULT. PATIENT HAD PRIOR COLON RESECTION, COLOSTOMY AND COLOSTOMY TAKE DOWN AND CAME TO THE ER DUE TO ABDOMINAL PAIN AND NAUSEA AND VOMITING, CT SCAN REPORTS BOWEL OBSTRUCTION, PATIENT NOW(9:40 AM) FEELS MUCH BETTER, HAS PASSED FLATUS AND HAS MUCH LESS PAIN, ABDOMEN IS SOFT NON DISTENDED AND NON TENDER, NO INDICATION FOR EMERGENCY SURGICAL INTERVENTION. EXPLAINED TO PATIENT THAT ANOTHER SURGEON WILL COME TO SEE HIM , Plan discussed with: Patient SHU GREGG MD May 31, 2025 09:46
[2025-05-31 09:48] LABS: Urine Protein, UAD Negative (Negative)
[2025-05-31] MEDS: FAMOTIDINE (10MG/ML) 2ML VL IV SCH (10:03)
--- NOTE | 2025-05-31 12:43 | DVHPNRES ---
Progress Note Date Seen: May 31, 2025 Resident Creating Document: JAKOB BARKER RESIDENT Medical Necessity Reason Pt with a Central, PICC or Fol: No Subjective Review of Systems 55-year-old male with past medical history of diverticulitis post bowel resection done in 2012 and 2016, type 2 diabetes mellitus and hyperlipidemia came in with symptoms of abdominal pain for 1 day. The abdominal pain was associated with 2 episodes of vomiting at home and 4 episodes of vomiting in the ER. In the ER labs showed WBC of 14 ,lactic acid of 3.2, calcium 8.1, troponin I less than 3. Chest x-ray showed no acute abnormality, CT abdomen showed small bowel obstruction. Surgery consultation given. PMHx: Type 2 diabetes mellitus, hypertension PSHx:Diverticulitis post bowel resection in 2012, hernia repair in 2015 Social history: Lives at home, denies smoking alcohol or illicit drug use Home medication: Metformin, Lipitor Allergic history: No known allergies General: patient denies fever, fatigue, weaknes, sweating, any recent changes in appetite and weight HEENT: No headaches, visiual changes, hearing loss, tinnitus, nasal congestion and discharge, and sore throat. Cardiovascular: Denies chest pain, palpitations, dyspnea on exertion, orthopnea, or claudication. Respiratory: No cough, and wheezing. Gastrointestinal: Patient complains of abdominal pain. Denies nausea or vomiting now Genitourinary: No dysuria, hematuria, discharge, frequency, urgency, nocturia, incontinence, and urinary retention. Endocrine: No heat or cold intolerance, polydipsia, polyuria, and polyphagia. Neurological: No dizziness, extremity weakness and numbness, tremors, gait disturbance, seizures, and memory impairment. Psychiatric: Denies depression, anxiety,or insomnia. Musculoskeletal: Denies neck pain, stiffness and swelling, back pain, muscle weakness, joint pain, stiffness, swelling, or limited range of motion. Skin: No rashes, itching, skin lesion, changes in hair, nail, skin texture and breast. Hematologic/Lymphatic: Denies easy bruising, bleeding tendencies, or lymph node enlargement. Objective vital signs Vital Sign Date Time Temp Pulse Resp B/P (MAP) Pulse Ox O2 Delivery O2 Flow Rate FiO2 05/31/25 12:00 99 24 115/53 (73) 95 05/31/25 08:46 97.9 97.9 05/31/25 08:46 Nasal Cannula* 2 28 Total Intake and Output 05/30/25 05/30/25 05/31/25 15:00 23:00 07:00 Intake Total 2360 ml Balance 2360 ml medications Current Medications Medications Dose Ordered Sig/Jony Route Start Time Stop Time Status Last Admin Dose Admin Ceftriaxone Sodium 50 ml @ 100 mls/hr DAILY@09 IV 05/31/25 09:00 05/31/25 09:01 100 MLS/HR Famotidine 20 mg DAILY IV 05/31/25 10:00 05/31/25 10:03 20 MG Diagnostic Test (Pha) 1 strip Q6HR 05/31/25 06:00 05/31/25 11:52 1 STRIP Insulin Human Regular Q6HR SC 05/31/25 06:00 05/31/25 06:25 2 UNITS Dextrose 50 ml UD PRN IV 05/31/25 01:30 Sodium Chloride 1,000 ml @ 60 mls/hr [id number] IV 05/31/25 01:30 05/31/25 03:00 60 MLS/HR Ondansetron HCl 4 mg Q4HP PRN IV 05/31/25 01:30 Morphine Sulfate 2 mg Q4HPRN PRN IV 05/31/25 01:30 Nitroglycerin 0.4 mg Q5MINP PRN SL 05/31/25 05:15 Morphine Sulfate 2 mg Q30M PRN IV 05/31/25 05:15 Examination General Appearance: Alert, Oriented X3, Cooperative, patient in mild distress HEENT: Atraumatic, PERRLA, EOMI, Mucous membrane moist/pink Respiratory: Clear to auscultation, Normal air movement Cardiovascular: Regular rate, Normal S1, Normal S2, No murmurs, no chest wall tenderness Abdominal: Tenderness in the left upper and lower quadrant, abdomen not distended with no guarding or rigidity. Extremities: No clubbing, No cyanosis, No edema, Normal pulses, No tenderness/swelling Skin: No rashes, No breakdown, No significant lesion Neuro: Normal gait, Normal speech, Strength at 5/5 X4 ext, Normal tone, Sensation intact, Cranial nerves 3-12 NL, Reflexes 2+ Psych/Mental Status: Mental status NL, Mood NL laboratory and microbiology Laboratory Tests 05/31/25 03:20 Test 05/31/25 03:20 Range/Units Serum Glucose 154 H 74-106 mg/dL Problem List/Assessment/Plan Problem List/Assessment/Plan Small-bowel obstruction CT scan-Findings suggestive of small-bowel obstruction in the appropriate clinical setting. Patient on Nasogastric tube Surgery consult Acute respiratory failure Patient on 2 L of oxygen Status post bowel resection History of diverticulitis Type 2 diabetes mellitus On metformin Essential hyperlipidemia On Lipitor Plan discussed with: Patient Date of Service: May 31, 2025 Billing Provider: CHAIM VIDAL MD Common Visit Codes: [id number] INP/OBS CARE(HIGH) JAKOB BARKER RESIDENT May 31, 2025 12:42 CHAIM VIDAL MD Jun 06, 2025 21:56
[2025-05-31] MEDS: MORPHINE SULFATE INJ 2 MG/ml SYRG IV PRN (13:06)
[2025-05-31] MEDS: ONDANSETRON HCL 4 MG/2 ML VIAL IV PRN (13:06)
--- NOTE | 2025-05-31 14:38 | DVHINCON2 ---
Date of service: May 31, 2025 History of Present Illness 55-year-old male with a history of diverticulitis status post open surgery in 2013 with a subsequent hernia repair with more bowel resection in 2016 now complaining of one day history of left sided abdominal pain associated with nausea and vomiting. Today pain is much better than yesterday and also reports some flatus today Past Medical History Diabetes. Hyperlipidemia. Past Surgical History Open colectomy for diverticulitis. Hernia repair with bowel resection. Family History Noncontributory Social History Denies alcohol, tobacco, IV drug use Allergies: Coded Allergies: NO KNOWN ALLERGIES (Unverified , 05/30/25) Current Medications Current Medications Medications (Trade) Dose Ordered Sig/Jony Route PRN Reason Start Time Stop Time Status Last Admin Ceftriaxone Sodium 50 ml @ 100 mls/hr DAILY@09 IV 05/31/25 09:00 05/31/25 09:01 Famotidine (Pepcid Injection) 20 mg DAILY IV 05/31/25 10:00 05/31/25 10:03 Diagnostic Test (Pha) (Accu-Chek Comfort Curve T) 1 strip Q6HR 05/31/25 06:00 05/31/25 11:52 Insulin Human Regular (InsuLIN R) Q6HR SC 05/31/25 06:00 05/31/25 06:25 Dextrose 50 ml UD PRN IV Blood Sugar LESS THAN 60 05/31/25 01:30 Sodium Chloride 1,000 ml @ 60 mls/hr [id number] IV 05/31/25 01:30 05/31/25 03:00 Ondansetron HCl (Zofran) 4 mg Q4HP PRN IV NAUSEA / VOMITING 05/31/25 01:30 05/31/25 13:06 Morphine Sulfate 2 mg Q4HPRN PRN IV SEVERE PAIN (7-10 PAIN SCALE) 05/31/25 01:30 05/31/25 13:06 Nitroglycerin (Ntrostat Sublingual) 0.4 mg Q5MINP PRN SL FOR CHEST PAIN 05/31/25 05:15 Morphine Sulfate 2 mg Q30M PRN IV FOR CHEST PAIN 05/31/25 05:15 Metformin HCl (Glucophage) 500 mg DAILY PO 05/31/25 12:45 Atorvastatin Calcium (Lipitor) 10 mg HS PO 05/31/25 22:00 Vital Signs Vital Signs Date Time Temp Pulse Resp B/P (MAP) Pulse Ox O2 Delivery O2 Flow Rate FiO2 05/31/25 13:36 68 15 122/72 05/31/25 13:00 98.0 98 98.0 05/31/25 08:46 Nasal Cannula* 2 28 Physical Exam GEN: Age-appropriate male in no acute distress. Alert. HEENT: Normocephalic atraumatic. Moist mucous membranes. Anicteric sclerae. There is an NG tube to low intermittent suction. CV: RRR Respiratory: CTAB ABD: Large midline incisional scars from previous surgeries. Minimal diffuse tenderness to palpation especially in the left side without guarding or rebound. CT of the abdomen and pelvis: Postsurgical changes of the sigmoid colon with colonic diverticulosis without diverticulitis. Dilated and fecalized small bowel with transition to decompressed loops in the lower mid abdomen. Labs/Diagnostic Data Labs Test 05/31/25 09:03 05/31/25 05:24 05/31/25 03:20 05/31/25 00:45 Range/Units Urine Color Light-yellow Yellow Urine Clarity Clear Clear Urine pH 7.0 5.0-9.0 Urine Specific Standard 1.020 1.001-1.035 Urine Protein Negative Negative Urine Ketones Negative Negative Urine Blood Negative Negative /uL Urine Nitrite Negative Negative Urine Bilirubin Negative Negative Urine Urobilinogen Normal Negative mg/dL Urine Leukocyte Esterase Negative Negative /uL Urine RBC 2 0 - 3 /hpf Urine Microscopic WBC < 1 0-3 /HPF Urine Squamous Epithelial Cells Few <5 /hpf Urine Bacteria None seen None Seen /hpf Urine Glucose Normal Normal mg/dL Lactic Acid Level 3.2 *H 0.4-2.0 mmol/L White Blood Count 14.2 H 4.4-10.8 10^3/uL Red Blood Count 4.74 4.5-5.90 10^6/uL Hemoglobin 14.7 13.5-17.5 g/dL Hematocrit 43.1 41.0-53.0 % Mean Corpuscular Volume 91.0 80.0-100.0 fL Mean Corpuscular Hemoglobin 31.1 28.0-32.0 pg Mean Corpuscular Hemoglobin Concent 34.2 32.0-36.0 g/dL Red Cell Distribution Width 13.8 11.8-14.3 % Platelet Count 166 140-450 10^3/uL Mean Platelet Volume 9.5 6.9-10.8 fL Neutrophils (%) (Auto) 87.5 H 37.0-80.0 % Lymphocytes (%) (Auto) 7.6 L 10.0-50.0 % Monocytes (%) (Auto) 4.7 0.0-12.0 % Eosinophils (%) (Auto) 0.0 0.0-7.0 % Basophils (%) (Auto) 0.2 0.0-2.0 % Neutrophils # (Auto) 12.4 H 1.6-8.6 10 ^3/uL Lymphocytes # (Auto) 1.1 0.4-5.4 10 ^3/uL Monocytes # (Auto) 0.7 0-1.3 10 ^3/uL Eosinophils # (Auto) 0 0-0.8 10 ^3/uL Basophils # (Auto) 0 0-0.2 10 ^3/uL Nucleated Red Blood Cells 0.1 % Sodium Level 144 136-145 mmol/L Potassium Level 4.1 3.5-5.1 mmol/L Chloride Level 108 H 98-107 mmol/L Carbon Dioxide Level 24 20-31 mmol/L Anion Gap 12 5-15 Blood Urea Nitrogen 10 9-23 mg/dL Creatinine 0.70 0.700-1.30 mg/dL Glomerular Filtration Rate Calc 110 >90 mL/min BUN/Creatinine Ratio 14.3 10.0-20.0 Serum Glucose 154 H 74-106 mg/dL Calcium Level 8.1 L 8.7-10.4 mg/dL Total Bilirubin 0.6 0.2-1.0 mg/dL Aspartate Amino Transferase (AST) 29 13-40 U/L Alanine Aminotransferase (ALT) 24 7-40 U/L Alkaline Phosphatase 53 46-116 U/L Total Protein 6.6 5.7-8.2 g/dL Albumin 4.2 3.2-4.8 g/dL Troponin I High Sensitivity < 3 L </=54 ng/L Test 05/30/25 22:52 Range/Units Lipase 29 12-53 U/L Assessment 1. Small-bowel obstruction Plan/Recommendation 1. Continue with NG tube decompression and fluid resuscitation 2. Small-bowel follow-through with Gastrografin Plan discussed with: Patient SHERWIN FIORE MD May 31, 2025 14:38
[2025-05-31 15:19] LABS: INR 1.02 (0.9-1.15); Partial Thromboplastin Time 29.9 SEC (24.5-34.5); Prothrombin Time 10.8 sec (9.3-11.8)
[2025-05-31] MEDS ORDERED: ATORVASTATIN 20 MG TAB PO SCH (22:00)
[2025-06-01 04:09] LABS: Hematocrit 39.6 % (41.0-53.0); Hemoglobin 13.4 g/dL (13.5-17.5); Mean Corpuscular Hemoglobin 30.8 pg (28.0-32.0); Mean Corpuscular Volume 91.1 fL (80.0-100.0); Nucleated Red Blood Cells % 0.1 %
[2025-06-01 04:24] LABS: Alanine Aminotransferase 22 U/L (7-40); Albumin 3.6 g/dL (3.2-4.8); Anion Gap 8 (5-15); BUN/Creatinine Ratio 14.1 (10.0-20.0); Blood Urea Nitrogen 10 mg/dL (9-23); Carbon Dioxide 27 mmol/L (20-31); Potassium 3.7 mmol/L (3.5-5.1); Sodium 143 mmol/L (136-145)
[2025-06-01 04:25] LABS: Bilirubin, Total 0.7 mg/dL (0.2-1.0)
[2025-06-01 04:31] LABS: Alkaline Phosphatase 45 U/L (46-116); Calcium 7.8 mg/dL (8.7-10.4); Chloride 108 mmol/L (98-107); Glucose 111 mg/dL (74-106); Total Protein 5.5 g/dL (5.7-8.2)
[2025-06-01] MEDS: GASTROGRAFIN 120 ML SOL ONE (09:21)
--- NOTE | 2025-06-01 10:25 | DVHPNRES ---
Progress Note Date Seen: Jun 01, 2025 Resident Creating Document: JAKOB BARKER RESIDENT Medical Necessity Reason Pt with a Central, PICC or Fol: No Subjective Review of Systems Patient seen at bedside. The abdominal pain is much better now. No further episodes of vomiting. On NG tube decompression. Radiology planning small-bowel follow-through with Gastrografin. Objective vital signs Vital Sign Date Time Temp Pulse Resp B/P (MAP) Pulse Ox O2 Delivery O2 Flow Rate FiO2 06/01/25 09:00 97.5 63 15 120/76 (91) 98 97.5 06/01/25 08:57 Nasal Cannula* 1 24 Total Intake and Output 05/31/25 05/31/25 06/01/25 15:00 23:00 07:00 Intake Total 530 ml 600 ml 800 ml Output Total 850 ml Balance -320 ml 600 ml 800 ml medications Current Medications Medications Dose Ordered Sig/Jony Route Start Time Stop Time Status Last Admin Dose Admin Ceftriaxone Sodium 50 ml @ 100 mls/hr DAILY@09 IV 05/31/25 09:00 06/01/25 09:18 100 MLS/HR Famotidine 20 mg DAILY IV 05/31/25 10:00 05/31/25 10:03 20 MG Diagnostic Test (Pha) 1 strip Q6HR 05/31/25 06:00 06/01/25 05:34 1 STRIP Insulin Human Regular Q6HR SC 05/31/25 06:00 05/31/25 06:25 2 UNITS Dextrose 50 ml UD PRN IV 05/31/25 01:30 Ondansetron HCl 4 mg Q4HP PRN IV 05/31/25 01:30 05/31/25 13:06 4 MG Morphine Sulfate 2 mg Q4HPRN PRN IV 05/31/25 01:30 05/31/25 13:06 2 MG Nitroglycerin 0.4 mg Q5MINP PRN SL 05/31/25 05:15 Morphine Sulfate 2 mg Q30M PRN IV 05/31/25 05:15 Sodium Chloride 1,000 ml @ 100 mls/hr Q10H IV 05/31/25 14:45 06/01/25 02:43 100 MLS/HR Examination General Appearance: Alert, Oriented X3, Cooperative, patient in mild distress HEENT: Atraumatic, PERRLA, EOMI, Mucous membrane moist/pink Respiratory: Clear to auscultation, Normal air movement Cardiovascular: Regular rate, Normal S1, Normal S2, No murmurs, no chest wall tenderness Abdominal: mild Tenderness in the left upper and lower quadrant, abdomen not distended with no guarding or rigidity. Extremities: No clubbing, No cyanosis, No edema, Normal pulses, No tenderness/swelling Skin: No rashes, No breakdown, No significant lesion Neuro: Normal gait, Normal speech, Strength at 5/5 X4 ext, Normal tone, Sensation intact, Cranial nerves 3-12 NL, Reflexes 2+ Psych/Mental Status: Mental status NL, Mood NL laboratory and microbiology Laboratory Tests 06/01/25 03:54 Test 06/01/25 03:54 Range/Units Serum Glucose 111 H 74-106 mg/dL Problem List/Assessment/Plan Problem List/Assessment/Plan Small-bowel obstruction CT scan-Findings suggestive of small-bowel obstruction in the appropriate clinical setting. Nasogastric tube decompression Surgery [id number] follow-through with Gastrografin Acute respiratory failure Patient on 2 L of oxygen Status post bowel resection History of diverticulitis Type 2 diabetes mellitus On metformin Essential hyperlipidemia On Lipitor Plan discussed with: Patient My Orders My Orders Orders - JAKOB BARKER RESIDENT Procedure Category Date Status Time Complete Blood Count LAB 06/02/25 Verified 04:00 Comprehensive LAB 06/02/25 Verified Metabolic Panel 04:00 Date of Service: Jun 01, 2025 Billing Provider: GABRIELLA ANGLIN MD Common Visit Codes: [id number] INP/OBS CARE(HIGH) JAKOB BARKER Jun 01, 2025 10:25 GABRIELLA ANGLIN MD Jun 02, 2025 09:24
--- NOTE | 2025-06-01 10:39 | DVHPN2 ---
Progress Note - Dictate Date Seen: Jun 01, 2025 Medical Necessity Reason Pt with a Central, PICC or Fol: No Subjective E: no major events o/n. curr getting SBFT vital signs Vital Sign Date Time Temp Pulse Resp B/P (MAP) Pulse Ox O2 Delivery O2 Flow Rate FiO2 06/01/25 09:00 97.5 63 15 120/76 (91) 98 97.5 06/01/25 08:57 Nasal Cannula* 1 24 Total Intake and Output 05/31/25 05/31/25 06/01/25 15:00 23:00 07:00 Intake Total 530 ml 600 ml 800 ml Output Total 850 ml Balance -320 ml 600 ml 800 ml medications Current Medications Medications Dose Ordered Sig/Jony Route Start Time Stop Time Status Last Admin Dose Admin Ceftriaxone Sodium 50 ml @ 100 mls/hr DAILY@09 IV 05/31/25 09:00 06/01/25 09:18 100 MLS/HR Famotidine 20 mg DAILY IV 05/31/25 10:00 06/01/25 10:25 20 MG Diagnostic Test (Pha) 1 strip Q6HR 05/31/25 06:00 06/01/25 05:34 1 STRIP Insulin Human Regular Q6HR SC 05/31/25 06:00 05/31/25 06:25 2 UNITS Dextrose 50 ml UD PRN IV 05/31/25 01:30 Ondansetron HCl 4 mg Q4HP PRN IV 05/31/25 01:30 05/31/25 13:06 4 MG Morphine Sulfate 2 mg Q4HPRN PRN IV 05/31/25 01:30 05/31/25 13:06 2 MG Nitroglycerin 0.4 mg Q5MINP PRN SL 05/31/25 05:15 Morphine Sulfate 2 mg Q30M PRN IV 05/31/25 05:15 Sodium Chloride 1,000 ml @ 100 mls/hr Q10H IV 05/31/25 14:45 06/01/25 02:43 100 MLS/HR objective GEN: NAD ABD: soft with min distention laboratory and microbiology Laboratory Tests 06/01/25 03:54 Test 06/01/25 03:54 Range/Units Serum Glucose 111 H 74-106 mg/dL Assessment/Plan A: 1. Small-bowel obstruction P: 1. SBFT pending Plan discussed with: Patient SHERWIN FIORE MD Jun 01, 2025 10:39
--- NOTE | 2025-06-01 11:55 | DVH ---
Procedure: XY SMALL BOWEL SERIES-W GASTROGRA Reason for study/Clinical History: SBO Comparison Study: None Technique: Single contrast small bowel series performed. FINDINGS/IMPRESSION: Initial tax services manager view of the abdomen and pelvis appears demonstrates no acute process. Contrast is identified within the colon by 45 minutes. This represents a normal small bowel transit time.
[2025-06-01 21:19] VITALS: PULSE 71; RESP 16; O2SAT 94
[2025-06-01 21:30] VITALS: BP 121/78; PULSE 71; RESP 16; TEMP 98.7; O2SAT 94
[2025-06-01 22:43] VITALS: BP 121/78; PULSE 71; RESP 16; TEMP 98.7; O2SAT 94
[2025-06-01] MEDS ORDERED: METF-370 PO (22:47)
[2025-06-01] MEDS ORDERED: ATOR10TA52 PO (22:47)
[2025-06-02] VITALS (8 sets, daily range): BP systolic 118–134; BP diastolic 70–84; PULSE 70–80; RESP 16–18; TEMP 97–98.4; O2SAT 94–97
[2025-06-02 05:28] LABS: Hematocrit 42.0 % (41.0-53.0); Hemoglobin 14.5 g/dL (13.5-17.5); Mean Corpuscular Hemoglobin 31.1 pg (28.0-32.0); Mean Corpuscular Volume 89.9 fL (80.0-100.0); Nucleated Red Blood Cells % 0.0 %
[2025-06-02 05:50] LABS: Alanine Aminotransferase 26 U/L (7-40); Albumin 4.1 g/dL (3.2-4.8); Alkaline Phosphatase 49 U/L (46-116); Anion Gap 10 (5-15); BUN/Creatinine Ratio 15.6 (10.0-20.0); Blood Urea Nitrogen 10 mg/dL (9-23); Carbon Dioxide 27 mmol/L (20-31); Chloride 104 mmol/L (98-107); Glucose 86 mg/dL (74-106); Potassium 3.6 mmol/L (3.5-5.1); Sodium 141 mmol/L (136-145); Total Protein 6.2 g/dL (5.7-8.2)
[2025-06-02 05:51] LABS: Bilirubin, Total 0.8 mg/dL (0.2-1.0)
[2025-06-02 05:56] LABS: Calcium 8.3 mg/dL (8.7-10.4)
--- NOTE | 2025-06-02 11:32 | DVHPN2 ---
Progress Note - Dictate Date Seen: Jun 02, 2025 Medical Necessity Reason Pt with a Central, PICC or Fol: No Subjective E: no major events o/n. feels much better. vital signs Vital Sign Date Time Temp Pulse Resp B/P (MAP) Pulse Ox O2 Delivery O2 Flow Rate FiO2 06/02/25 09:00 98.1 71 16 120/75 (90) 94 98.1 06/02/25 08:00 Room Air* 0 21 Total Intake and Output 06/01/25 06/01/25 06/02/25 15:00 23:00 07:00 Intake Total 50 ml 1086.6 ml Output Total 100 ml 300 ml Balance 50 ml -100 ml 786.6 ml medications Current Medications Medications Dose Ordered Sig/Jony Route Start Time Stop Time Status Last Admin Dose Admin Ceftriaxone Sodium 50 ml @ 100 mls/hr DAILY@09 IV 05/31/25 09:00 06/02/25 09:23 100 MLS/HR Famotidine 20 mg DAILY IV 05/31/25 10:00 06/02/25 09:23 20 MG Diagnostic Test (Pha) 1 strip Q6HR 05/31/25 06:00 06/02/25 05:32 1 STRIP Insulin Human Regular Q6HR SC 05/31/25 06:00 05/31/25 06:25 2 UNITS Dextrose 50 ml UD PRN IV 05/31/25 01:30 Ondansetron HCl 4 mg Q4HP PRN IV 05/31/25 01:30 05/31/25 13:06 4 MG Morphine Sulfate 2 mg Q4HPRN PRN IV 05/31/25 01:30 05/31/25 13:06 2 MG Nitroglycerin 0.4 mg Q5MINP PRN SL 05/31/25 05:15 Morphine Sulfate 2 mg Q30M PRN IV 05/31/25 05:15 Sodium Chloride 1,000 ml @ 100 mls/hr Q10H IV 05/31/25 14:45 06/02/25 05:33 100 MLS/HR objective GEN: NAD ABD: soft. ND. no TTP. SBFT: normal. laboratory and microbiology Laboratory Tests 06/02/25 04:30 Test 06/02/25 04:30 Range/Units Serum Glucose 86 74-106 mg/dL Assessment/Plan A: 1. resolved pSBO P: 1. DC NGT and start liquid diet. if maria dolores, ok for DC home from surgery POV. Plan discussed with: Patient SHERWIN FIORE MD Jun 02, 2025 11:32
--- NOTE | 2025-06-02 16:10 | DVHPNRES ---
Progress Note Date Seen: Jun 02, 2025 Resident Creating Document: ARNOLDO HARPER RESIDENT Medical Necessity Reason Pt with a Central, PICC or Fol: No Subjective Review of Systems Brief history and review of system on admission: Tacho Feng is a 55-year-old male with past medical history of diverticulitis post bowel resection done in 2012 and 2016, type 2 diabetes mellitus and hyperlipidemia came in with symptoms of abdominal pain for 1 day. The abdominal pain was associated with 2 episodes of vomiting at home and 4 episodes of vomiting in the ER. In the ER labs showed WBC of 14 ,lactic acid of 3.2, calcium 8.1, troponin I less than 3. Chest x-ray showed no acute abnormality, CT abdomen showed small bowel obstruction. Surgery consultation given. PMHx: Type 2 diabetes mellitus, hypertension PSHx:Diverticulitis post bowel resection in 2012, hernia repair in 2015 Social history: Lives at home, denies smoking alcohol or illicit drug use Home medication: Metformin, Lipitor Allergic history: No known allergies General: patient denies fever, fatigue, weaknes, sweating, any recent changes in appetite and weight HEENT: No headaches, visiual changes, hearing loss, tinnitus, nasal congestion and discharge, and sore throat. Cardiovascular: Denies chest pain, palpitations, dyspnea on exertion, orthopnea, or claudication. Respiratory: No cough, and wheezing. Gastrointestinal: Patient complains of abdominal pain. Denies nausea or vomiting now Genitourinary: No dysuria, hematuria, discharge, frequency, urgency, nocturia, incontinence, and urinary retention. Endocrine: No heat or cold intolerance, polydipsia, polyuria, and polyphagia. Neurological: No dizziness, extremity weakness and numbness, tremors, gait disturbance, seizures, and memory impairment. Psychiatric: Denies depression, anxiety,or insomnia. Musculoskeletal: Denies neck pain, stiffness and swelling, back pain, muscle weakness, joint pain, stiffness, swelling, or limited range of motion. Skin: No rashes, itching, skin lesion, changes in hair, nail, skin texture and breast. Hematologic/Lymphatic: Denies easy bruising, bleeding tendencies, or lymph node enlargement. 06/02/2025: He was examined at bedside today. He reports resolution of pain abdomen. NG tube in place, dark-colored aspirate. Small-bowel follow-through with Gastrografin shows no obstruction, surgery on board, recommended discontinuation of NG tube and initiate oral nutrition as tolerated. Objective vital signs Vital Sign Date Time Temp Pulse Resp B/P (MAP) Pulse Ox O2 Delivery O2 Flow Rate FiO2 06/02/25 12:51 98.3 71 16 124/72 (89) 95 98.3 06/02/25 08:00 Room Air* 0 21 Total Intake and Output 06/01/25 06/01/25 06/02/25 15:00 23:00 07:00 Intake Total 50 ml 1086.6 ml Output Total 100 ml 300 ml Balance 50 ml -100 ml 786.6 ml medications Current Medications Medications Dose Ordered Sig/Jony Route Start Time Stop Time Status Last Admin Dose Admin Ceftriaxone Sodium 50 ml @ 100 mls/hr DAILY@09 IV 05/31/25 09:00 06/02/25 09:23 100 MLS/HR Famotidine 20 mg DAILY IV 05/31/25 10:00 06/02/25 09:23 20 MG Diagnostic Test (Pha) 1 strip Q6HR 05/31/25 06:00 06/02/25 13:36 1 STRIP Insulin Human Regular Q6HR SC 05/31/25 06:00 05/31/25 06:25 2 UNITS Dextrose 50 ml UD PRN IV 05/31/25 01:30 Ondansetron HCl 4 mg Q4HP PRN IV 05/31/25 01:30 05/31/25 13:06 4 MG Morphine Sulfate 2 mg Q4HPRN PRN IV 05/31/25 01:30 05/31/25 13:06 2 MG Nitroglycerin 0.4 mg Q5MINP PRN SL 05/31/25 05:15 Morphine Sulfate 2 mg Q30M PRN IV 05/31/25 05:15 Sodium Chloride 1,000 ml @ 100 mls/hr Q10H IV 05/31/25 14:45 06/02/25 05:33 100 MLS/HR Examination General Appearance: Alert, Oriented X3, Cooperative, patient in mild distress HEENT: Atraumatic, PERRLA, EOMI, Mucous membrane moist/pink Respiratory: Clear to auscultation, Normal air movement Cardiovascular: Regular rate, Normal S1, Normal S2, No murmurs, no chest wall tenderness Abdominal: Soft abdomen, without tenderness. NG tube draining dark-colored aspirate Extremities: No clubbing, No cyanosis, No edema, Normal pulses, No tenderness/swelling Skin: No rashes, No breakdown, No significant lesion Neuro: Normal gait, Normal speech, Strength at 5/5 X4 ext, Normal tone, Sensation intact, Cranial nerves 3-12 NL, Reflexes 2+ Psych/Mental Status: Mental status NL, Mood NL laboratory and microbiology Laboratory Tests 06/02/25 04:30 Test 06/02/25 04:30 Range/Units Serum Glucose 86 74-106 mg/dL Microbiology Date/Time Source Procedure Growth Status 06/01/25 11:20 Stool Stool Culture - Preliminary Resulted 06/01/25 11:20 Stool Shiga Toxin I & II Pending Resulted Problem List/Assessment/Plan Problem List/Assessment/Plan Small-bowel obstruction with NG tube decompression Status post bowel resection CT scan suggestive of small-bowel obstruction Small-bowel follow-through with Gastrografin revealed no obstruction Surgery on board, recommended discontinuation of Nasogastric tube decompression and initiate oral nutrition as tolerated Continue IV ceftriaxone Acute respiratory failure, resolving History of diverticulitis Essential hyperlipidemia Type 2 diabetes mellitus Sliding scale insulin DIET: Advance as tolerated GI PROPHYLAXIS: Famotidine CODE STATUS: Goals of care discussed with patient at bedside for more than 25 minutes. Full code DISPOSITION: Med/surge Patient's status and plan discussed with the patient. Case discussed with Dr. Márquez Plan discussed with: Patient Date of Service: Jun 02, 2025 Billing Provider: GABRIELLA MÁRQUEZ MD Common Visit Codes: [id number] INP/OBS CARE(HIGH) ARNOLDO HARPER RESIDENT Jun 02, 2025 16:10 GABRIELLA MÁRQUEZ MD Jun 02, 2025 23:08
[2025-06-03 01:00] VITALS: BP 121/72; PULSE 69; RESP 18; TEMP 97.2; O2SAT 97
[2025-06-03 05:00] VITALS: BP 116/76; PULSE 65; RESP 18; TEMP 97.5; O2SAT 95
[2025-06-03 07:30] VITALS: PULSE 69
[2025-06-03 09:00] VITALS: BP 104/66; PULSE 63; RESP 18; TEMP 97.9; O2SAT 99
[2025-06-03 11:18] LABS: Hepatitis B Surface Antigen Negative (Negative); Hepatitis C Antibody Negative (Negative)
--- NOTE | 2025-06-03 17:20 | DVHDSRES ---
Discharge Summary Date of Admission Resident Creating Document: LAW GRANDA RESIDENT May 31, 2025 at 05:09 Date of Discharge: Jun 03, 2025 Labs/Diagnostic Data: Laboratory Results Test 06/03/25 11:49 06/02/25 04:30 06/01/25 11:20 06/01/25 08:46 POC Glucose 94 mg/dl (70-106) White Blood Count 6.0 10^3/uL (4.4-10.8) Red Blood Count 4.68 10^6/uL (4.5-5.90) Hemoglobin 14.5 g/dL (13.5-17.5) Hematocrit 42.0 % (41.0-53.0) Mean Corpuscular Volume 89.9 fL (80.0-100.0) Mean Corpuscular Hemoglobin 31.1 pg (28.0-32.0) Mean Corpuscular Hemoglobin Concent 34.6 g/dL (32.0-36.0) Red Cell Distribution Width 13.0 % (11.8-14.3) Platelet Count 169 10^3/uL (140-450) Mean Platelet Volume 9.1 fL (6.9-10.8) Neutrophils (%) (Auto) 52.8 % (37.0-80.0) Lymphocytes (%) (Auto) 37.2 % (10.0-50.0) Monocytes (%) (Auto) 7.8 % (0.0-12.0) Eosinophils (%) (Auto) 1.9 % (0.0-7.0) Basophils (%) (Auto) 0.3 % (0.0-2.0) Neutrophils # (Auto) 3.2 10 ^3/uL (1.6-8.6) Lymphocytes # (Auto) 2.2 10 ^3/uL (0.4-5.4) Monocytes # (Auto) 0.5 10 ^3/uL (0-1.3) Eosinophils # (Auto) 0.1 10 ^3/uL (0-0.8) Basophils # (Auto) 0 10 ^3/uL (0-0.2) Nucleated Red Blood Cells 0.0 % Sodium Level 141 mmol/L (136-145) Potassium Level 3.6 mmol/L (3.5-5.1) Chloride Level 104 mmol/L (98-107) Carbon Dioxide Level 27 mmol/L (20-31) Anion Gap 10 (5-15) Blood Urea Nitrogen 10 mg/dL (9-23) Creatinine 0.64 mg/dL (0.700-1.30) Glomerular Filtration Rate Calc 113 mL/min (>90) BUN/Creatinine Ratio 15.6 (10.0-20.0) Serum Glucose 86 mg/dL (74-106) Calcium Level 8.3 mg/dL (8.7-10.4) Total Bilirubin 0.8 mg/dL (0.2-1.0) Aspartate Amino Transferase (AST) 23 U/L (13-40) Alanine Aminotransferase (ALT) 26 U/L (7-40) Alkaline Phosphatase 49 U/L (46-116) Total Protein 6.2 g/dL (5.7-8.2) Albumin 4.1 g/dL (3.2-4.8) Stool Occult Blood Negative (Negative) Stool Occult Blood Sample #3 (Negative) Stool for White Cells None seen Lactic Acid Level 1.3 mmol/L (0.4-2.0) Test 06/01/25 03:54 05/31/25 14:45 05/31/25 09:03 05/31/25 00:45 Hepatitis B Surface Antigen Negative (Negative) Hepatitis C Antibody Negative (Negative) Prothrombin Time 10.8 sec (9.3-11.8) Prothrombin Time INR 1.02 (0.9-1.15) Activated Partial Thromboplast Time 29.9 SEC (24.5-34.5) Urine Color Light-yellow (Yellow) Urine Clarity Clear (Clear) Urine pH 7.0 (5.0-9.0) Urine Specific Dawson 1.020 (1.001-1.035) Urine Protein Negative (Negative) Urine Ketones Negative (Negative) Urine Blood Negative /uL (Negative) Urine Nitrite Negative (Negative) Urine Bilirubin Negative (Negative) Urine Urobilinogen Normal mg/dL (Negative) Urine Leukocyte Esterase Negative /uL (Negative) Urine RBC 2 /hpf (0 - 3) Urine Microscopic WBC < 1 /HPF (0-3) Urine Squamous Epithelial Cells Few /hpf (<5) Urine Bacteria None seen /hpf (None Seen) Urine Glucose Normal mg/dL (Normal) Troponin I High Sensitivity < 3 ng/L (</=54) Test 05/30/25 22:52 Lipase 29 U/L (12-53) Other Laboratory Tests 06/02/25 04:30 Brief Hx & Hospital Course: Tacho Feng is a 55-year-old male with past medical history of diverticulitis post bowel resection done in 2012 and 2015, type 2 diabetes mellitus and hyperlipidemia came in with symptoms of abdominal pain for 1 day. The abdominal pain was associated with 2 episodes of vomiting at home and 4 episodes of vomiting in the ER. In the ER labs showed WBC of 14 ,lactic acid of 3.2, calcium 8.1, troponin I less than 3. Chest x-ray showed no acute abnormality, CT abdomen showed small bowel obstruction. CT abdomen and pelvis without contrast shows Postsurgical changes of the sigmoid colon. Colonic diverticulosis without CT evidence of diverticulitis. The appendix is normal. There is dilated and fecalized small bowel with transition to decompressed loops seen within the lower midabdomen. Hospital course: Partial small-bowel obstruction which spontaneously resolved, on admission, lab shows leukocytosis after treating antibiotic leukocytosis resolved. surgery consulted likely small-bowel obstruction recommended to continue with NG tube decompression and fluid suction. patient prior history of colon resection, colostomy and colostomy takedown. abdominal pain and GI symptoms possible due to prior surgery. x-ray small bowel series with Gastrografin shows dentified within the colon by 45 minutes that represent normal small bowel transit time. Patient currently denies any nausea, vomiting, abdominal pain, fever. Passes bowel and flatus today . Patient hemodynamically stable and ready for discharge. Recommended to follow-up with primary care 2 weeks after discharge. Patient hemodynamically stable, asymptomatic, in condition to be discharged home. Was granted under optimal medical therapy, gave her advice on healthy lifestyle habits (avoid opiates and high-fiber diet), and follow up with PCP and GI specialist. DIAGNOSIS Functional Small-bowel obstruction Acute respiratory failure Patient was on 2 L of oxygen Status post bowel resection History of diverticulitis Type 2 diabetes mellitus Small-bowel obstruction Lactic acidosis Hyperlipidemia Vitamin-D deficiency Leukocytosis, unspecified Intractable nausea and vomiting Goals of care discussed with patient for over 18 minutes: Full code status Discussed plan with Dr. Lee, patient and nurses. Cosigning senior Resident: Jaqui Dawkins, agree with discharge summary Physical Examination (PE): GENERAL APPEARANCE: Well developed, well nourished, alert and cooperative HEAD: normocephalic. EYES: PERRL, EOMI. Fundi normal, vision is grossly intact. EARS: External auditory canals and tympanic membranes clear, hearing grossly intact. THROAT: Oral cavity and pharynx normal. No inflammation, swelling, exudate, or lesions. Teeth and gingiva in good general condition. NECK: Neck supple, non-tender without lymphadenopathy, masses or thyromegaly. CARDIAC: Normal S1 and S2. No S3, S4 or murmurs. Rhythm is regular. LUNGS: Clear to auscultation and percussion without rales, rhonchi, wheezing or diminished breath sounds. ABDOMEN: Positive bowel sounds. Soft, nondistended, nontender. No guarding or rebound. No masses. MUSKULOSKELETAL: Adequately aligned spine. ROM intact spine and extremities. EXTREMITIES: No significant deformity or joint abnormality. No edema. Peripheral pulses intact. NEUROLOGICAL: CN II-XII intact. Strength and sensation symmetric and intact throughout. Reflexes 2+ throughout. SKIN: Skin normal color, texture and turgor with no lesions or eruptions. Operations or Procedures Exam: CT CT AB PEL WO CON-NO ORAL OR IV History: abd pain n/v Comparison Study: None TECHNIQUE: Multidetector CT of the abdomen and pelvis was performed from lung bases to pubic symphysis. Imaging was performed without IV contrast. Axial, coronal, and sagittal multiplanar reformats were obtained from the axial data set by the technologist. RADIATION DOSE: CTDI vol 10.14 mGy. DLP 678.83 mGy.cm Findings: Limited evaluation of the solid organs in the absence of IV contrast. Liver: Unremarkable. Spleen: Unremarkable. Pancreas: Unremarkable. Gallbladder: Unremarkable. Adrenals: Unremarkable Kidneys: Punctate nonobstructing left renal calculus. No hydronephrosis. Pelvic Viscera: Prostatomegaly. Vasculature: Unremarkable. Retroperitoneum: Unremarkable. Bowel: Postsurgical changes of the sigmoid colon. Colonic diverticulosis without CT evidence of diverticulitis. The appendix is normal. There is dilated and fecalized small bowel with transition to decompressed loops seen within the lower midabdomen. Musculoskeletal: Grade 1 anterolisthesis of L5 on S1 associated with bilateral pars defects. Soft tissues: Unremarkable Lungs: The lung bases are clear. Impression: 1. Findings as above suggestive of small-bowel obstruction in the appropriate clinical setting. 2. Additional findings as detailed. ATED BY: GERRY DIMAS MD DICTATED DATE/TIME: 05/30/25 2330 CHEST RADIOGRAPH Indication: NGT PLACEMENT Technique: Single frontal view of the chest was obtained Comparison: None FINDINGS: Lines and Tubes: Enteric tube likely in appropriate position. Lungs: No focal consolidation. Mild pulmonary vascular congestion and interstitial edema. Pleura: No effusion. No pneumothorax. Cardiomediastinal contours: Mild cardiomegaly. Bones: No acute osseous abnormality. IMPRESSION: 1. Enteric tube likely in appropriate position. 2. No focal consolidation. Mild pulmonary vascular congestion and interstitial edema. Mild cardiomegaly. ATED BY: LUCILLE FINN MD DICTATED DATE/TIME: 05/31/25 0312 Procedure: XY SMALL BOWEL SERIES-W GASTROGRA Reason for study/Clinical History: SBO Comparison Study: None Technique: Single contrast small bowel series performed. FINDINGS/IMPRESSION: Initial train brakeman view of the abdomen and pelvis appears demonstrates no acute process. Contrast is identified within the colon by 45 minutes. This represents a normal small bowel transit time. ATED BY: BERNARDINO SPENCER MD DICTATED DATE/TIME: 06/01/25 1153 Condition at Discharge: Stable Final Diagnosis/Problems List Functional Small-bowel obstruction Acute respiratory failure Patient was on 2 L of oxygen Status post bowel resection History of diverticulitis Type 2 diabetes mellitus Small-bowel obstruction Lactic acidosis Hyperlipidemia Vitamin-D deficiency Leukocytosis, unspecified Intractable nausea and vomiting Discharge Disposition: Home Discharge Instruct/Medications Diet: Cardiac 2g Na,low cholest Diet comment: High diet fibers Activity: No Restrictions, As Tolerated Follow Up/Referral: PCP Follow-up with continue to clinic within 2 weeks Tuesday morning. Medications: Atorvastatin 10 mg p.o. daily Metformin 500 mg p.o. b.i.d. Omeprazole 20 mg p.o. daily Scheduled Atorvastatin Calcium (Atorvastatin Calcium), 1 TAB PO DAILY, (Reported) Metformin Hydrochloride (Metformin Hcl), 1 TAB PO BID, (Reported) Discharge Statement: "Patient was advised to return to the ER or call 911 if any headaches, dizziness, shortness of breath, chest pain, abdominal pain, bleeding, fevers, or worsening of medical condition. Patient was counseled about treatment plan, medications, possible side effects, patientverbalized understanding. All questions were answered to the best of my ability. This discharge took greater then 30 minutes in planning, reviewing documentation, counseling the patient, and discussing with other team members." ASSESSMENT ASSESSMENT Assessment Ruled out small-bowel obstruction Date of Service: Jun 03, 2025 Billing Provider: CHAIM LEE MD Common Visit Codes: 83649-DLD/OBS DISCH DAY >30min LAW GRANDA RESIDENT Jun 03, 2025 17:19 JAQUI DAWKINS RESIDENT Jun 04, 2025 06:58 CHAIM LEE MD Jun 06, 2025 22:29
== END 2025-06-03 15:30 | disposition home or self-care (01) | DRG 247 ==
LOC: ER 22:24 → OVERFLOW 05-31 05:09 → TELE-WESTW 05-31 05:10
PROVIDERS: ADMIT Student in an Organized Health Care Education/Training Program; ATTEND Student in an Organized Health Care Education/Training Program
PROC: 0D9670Z Drainage of Stomach with Drainage Device, Via Natural or Artificial Opening (ICD-10-PCS; principal; 2025-06-02)
DX: K56.600 Partial intestinal obstruction, unspecified as to cause (principal); J96.00 Acute respiratory failure, unspecified whether with hypoxia or hypercapnia; E87.20 Acidosis, unspecified; E11.9 Type 2 diabetes mellitus without complications; D72.829 Elevated white blood cell count, unspecified; E55.9 Vitamin D deficiency, unspecified; E78.5 Hyperlipidemia, unspecified; R65.10 Systemic inflammatory response syndrome (SIRS) of non-infectious origin without acute organ dysfunction; R19.7 Diarrhea, unspecified; Z90.49 Acquired absence of other specified parts of digestive tract; Z79.899 Other long term (current) drug therapy
CPT/HCPCS: 36415; 71045; 74176; 74250; 80053; 81001; 82270; 82962; 83605; 83690; 83986; 84484; 85025; 85048; 85610; 85730; 86803; 87045; 87340; 96361; 96374; G0378; J1815; J2405; J2543; J3490